=== PATIENT | male | born 1995 | race Caucasian/White ===

== ENCOUNTER 2020-12-03 16:39 | Emergency (ER) | payer OTHER ==
[2020-12-03] MEDS ORDERED: AUGMENTIN 875-1 EAC1 PO (17:55)
[2020-12-03 18:00] VITALS: BP 127/73
== END 2020-12-03 18:01 | disposition home or self-care (01) ==
LOC: ED 16:39
DX: S61.251A Open bite of left index finger without damage to nail, initial encounter (principal); W55.01XA Bitten by cat, initial encounter; Y99.0 Civilian activity done for income or pay